=== PATIENT | female | born 1940 | race Caucasian/White ===

== ENCOUNTER 2019-10-07 09:13 | Outpatient (CLI) | payer MEDICARE, SELFPAY ==
--- NOTE | ~2019-10-07 | MR_ITS ---
EXAMINATION: MR brain/brain stem wo con EXAM DATE: 10/07/2019 10:07 INDICATION: Ataxia, history of transient ischemic attacks. TECHNIQUE: Magnetic resonance imaging (MRI) of the brain/brain stem obtained without contrast. Sagitt al T1, axial diffusion, gradient echo (T2*), T1, T2, FLAIR sequences obtained. Comparison is made to prior examination from 04/24/2012. FINDINGS: There are no areas of restricted diffusion to suggest acute infarction. There is no acute hemorrhage seen on the T2*, a hemosiderin sensitive sequence. No intraparenchymal brain mass lesion. There is mild periventricular and subcortical T2/FLAIR signal hyperintensity, nonspecific but probab ly related to small vessel ischemic disease (microangiopathy). There is mild prominence of the sulc i and ventricles related to cerebral atrophy. There are no extra-axial collections. Flow voids are seen in the cerebral arteries on the T2-weighted sequences consistent with their expected patency. Patient has had bilateral ocular lens surgery. Soft tissue is unremarkable. IMPRESSION: 1. No acute intracranial findings. 2. Chronic age related findings. Reviewed, dictated and finalized at location A.
== END 2019-10-07 09:14 | disposition home or self-care (01) ==
PROVIDERS: PCP Family Medicine; Visit Provider Family Medicine
DX: G54.9 Nerve root and plexus disorder, unspecified (principal)
CPT/HCPCS: 70551

== ENCOUNTER 2020-11-23 11:30 | Outpatient (CLI) | payer MEDICARE, SELFPAY ==
--- NOTE | ~2020-11-23 | XR_ITS ---
XR chest 2V 11/23/2020 11:53 Indication: Acute bronchitis Procedure: PA and lateral views of the chest Comparison: 01/26/2015 Findings: Heart size is normal. Left basilar atelectasis/scarring. There are scattered calcified gran ulomas. No acute focal pneumonia, edema or effusion. No pneumothorax. There are surgical clips in the right axilla. The lungs are hyperinflated which is consistent with, but not diagnostic of chronic ob structive pulmonary disease. Impression: 1: No acute cardiopulmonary disease. Reviewed, dictated and finalized at location B. Impression: 1: No acute cardiopulmonary disease.
== END 2020-11-23 11:31 | disposition home or self-care (01) ==
PROVIDERS: PCP Family Medicine; Visit Provider Family Medicine
DX: J20.9 Acute bronchitis, unspecified (principal)
CPT/HCPCS: 71046

== ENCOUNTER 2021-07-09 07:55 | Outpatient (CLI) | payer MEDICARE, SELFPAY ==
--- NOTE | ~2021-07-09 | MM_ITS ---
EXAMINATION: MM screening lui BI w jake HISTORY: Screening TECHNIQUE: Craniocaudal and mediolateral oblique 3-D tomosynthesis images were obtained and synthetic 2-D images were generated. CAD analysis was submitted and interpreted. COMPARISON: No prior mammogram is available for comparison at this institution. BREAST PARENCHYMAL COMPOSITION: There are scattered areas of fibroglandular density. FINDINGS: There are asymmetries centered in the upper outer quadrant of the left breast. There are no suspicious masses, calcifications or architectural distortion in the right breast to suggest maligna ncy. IMPRESSION: 1. Left breast asymmetries. 2. Additional mammographic views and possible breast ultrasound are recommended. BI-RADS Category 0: Incomplete: Needs additional imaging evaluation. Reviewed, dictated and finalized at location A. 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 Left breast asymmetries. 2. Additional mammographic views and possible breast ultrasound are recommended . BI-RADS Category 0: Incomplete: Needs additional imaging evaluation.
== END 2021-07-09 07:56 | disposition home or self-care (01) ==
LOC: ANHIMG 07:56
PROVIDERS: PCP Family Medicine; Visit Provider Family Medicine
DX: Z12.31 Encounter for screening mammogram for malignant neoplasm of breast (principal); R92.8 Other abnormal and inconclusive findings on diagnostic imaging of breast
CPT/HCPCS: 77063; 77067

== ENCOUNTER 2022-04-10 19:07 | Observation (INO) | payer MEDICARE, SELFPAY ==
[2022-04-10] VITALS (12 sets, daily range): BP systolic 136–147; BP diastolic 69–71; PULSE 75–100; RESP 16–27; TEMP 36.4–36.6; O2SAT 92–100
--- NOTE | ~2022-04-10 | XR_ITS ---
EXAMINATION: XR abdomen/kub 1V DATE: 04/12/2022 10:07 INDICATION: Lower abdominal pain TECHNIQUE: A supine view of the abdomen on 2 radiographs was obtained. COMPARISON: 04/11/2022 FINDINGS: Cholecystectomy clips in right upper quadrant. Couple additional surgical clips in the central pelvis and one in the left lower quadrant. Calcified splenic granuloma. Ossified phleboliths in the pelvis. Lung bases are clear. Moderate lower lumbar spondylosis. IMPRESSION: 1. No dilated bowel to suggest obstruction. Reviewed, dictated and finalized at location A.
--- NOTE | ~2022-04-10 | CT_ITS ---
EXAMINATION: CT abdomen pelvis w con DATE: 04/10/2022 21:27 INDICATION: LLQ AP TECHNIQUE: Computed tomography (CT) of the abdomen and pelvis was performed with 100 mL Omnipaque-350 intravenous contrast. Automated exposure control and iterative reconstruction technique were employe d. The dose-length product was 395.76 mGy-cm. COMPARISON: 08/15/2008. FINDINGS: Lower thorax: Senescent lung changes. Liver: Normal. Biliary/Gallbladder: Gallbladder is absent. Mild intra and extrahepatic biliary duct dilation, likely secondary to cholecystectomy. Pancreas: No mass or duct dilation. Spleen: Granulomatous calcifications. Adrenals:No mass. Kidneys: Multiple bilateral hypodensities, too small to characterize, but most likely represent cysts . GI tract: Distal esophageal and gastric wall edema. Multiple loops of dilated small bowel, most notab ly in the mid abdomen and right abdomen, no specific obstructing mass or transition point identified. No large bowel dilation. Diverticulosis without diverticulitis. Rectosigmoid anastomosis, without ev ident complication. Normal appendix. Mesentery/Peritoneum: No ascites, mass, or free air. Retroperitoneum: No mass. Atherosclerotic abdominal aortic and/or arterial calcifications. Pelvis: Fluid distended urinary bladder. Uterus not identified. Soft Tissues: Soft tissues and body wall unremarkable. Bones: No acute osseous finding. IMPRESSION: Multiple loops of dilated small bowel, without definite transition point, may represent obstruction o r ileus. Esophagitis/gastritis. Intra and extrahepatic biliary duct dilation, likely secondary to cho lecystectomy, unless accompanied by laboratory evidence of biliary obstruction. Reviewed, dictated and finalized at location K. IMPRESSION: Multiple loops of dilated small bowel, without definite transition point, may r epresent obstruction or ileus. Esophagitis/gastritis. Intra and extrahepatic bi liary duct dilation, likely secondary to cholecystectomy, unless accompanied by laboratory evidence of biliary obstruction.
--- NOTE | ~2022-04-10 | CT_ITS ---
EXAMINATION: CT brain wo con INDICATION: Dizziness COMPARISON: None TECHNIQUE: Standard unenhanced head CT. The dose-length product (DLP) was 681.00 mGy-cm. The mA was a djusted according to patient size. Iterative reconstruction technique was employed. FINDINGS: There is no acute intraparenchymal hemorrhage. No evidence of mass lesion. No evidence of a cute infarction. There is mild periventricular and subcortical hypodensity probably related to small vessel ischemic disease. There is mild prominence of the sulci and ventricles related to cerebral atr ophy. Intracranial calcified cerebral atherosclerosis is noted. There are no extra-axial collections. There is no mass effect or midline shift. Changes in the globes are likely from ocular lens surgery. The visualized sinuses and mastoid air cells are well aerated. IMPRESSION: 1. No acute intracranial abnormality. 2. Age related findings. Reviewed, dictated and finalized at location B.
--- NOTE | ~2022-04-10 | XR_ITS ---
EXAMINATION: XR abdomen/kub 1V DATE: 04/11/2022 10:15 INDICATION: Adynamic ileus. TECHNIQUE: A supine view of the abdomen was obtained. COMPARISON: CT abdomen and pelvis 04/10/2022 FINDINGS: There are no dilated loops of bowel. There are surgical clips in the abdomen. There is a sm all volume of stool in the colon. IMPRESSION: 1. Normal bowel gas pattern. Reviewed, dictated and finalized at location A.
--- NOTE | ~2022-04-10 | US_ITS ---
EXAMINATION: US carotid duplex BI DATE: 04/12/2022 15:49 INDICATION: Syncope. TECHNIQUE: Grayscale, color Doppler, and pulsed Doppler images of the cervical carotid arteries were obtained. The degree of vessel stenosis is placed in one of the following categories: normal, <50%, 5 0-69%, >=70% but less than near-occlusion, near-occlusion, or total occlusion. Note that percent sten osis relative to normal distal artery lumen diameter is indirectly measured from velocity measurement s as described by Roddy, et al. Radiology 2003; 229:340-346. COMPARISON: Ultrasound 04/24/2012 FINDINGS: RIGHT: The right common carotid artery (CCA) peak systolic velocity (PSV) is 98 cm/s. The right internal car otid artery (ICA) PSV is 85 cm/s. The right ICA end-diastolic velocity (EDV) is 15 cm/s. The right IC A/CCA PSV ratio is 0.9. Grayscale and color Doppler images yield an estimate of <50% diameter reducti on from plaque in the ICA. There is antegrade flow in the right vertebral artery. LEFT: The left CCA PSV is 101 cm/s. The left ICA PSV is 107 cm/s. The left ICA EDV is 20 cm/s. The left ICA /CCA PSV ratio is 1.1. Grayscale and color Doppler images yield an estimate of <50% diameter reductio n from plaque in the ICA. There is antegrade flow in the left vertebral artery. IMPRESSION: 1. <50% stenosis in the right internal carotid artery. 2. <50% stenosis in the left internal carotid artery. Reviewed, dictated and finalized at location A.
--- NOTE | 2022-04-10 20:07 | PC.NURSE ---
Pt difficult IV start, RNx3 attempt
--- NOTE | 2022-04-10 20:08 | ED.ABDPAIN ---
HPI - Abdominal Pain General Chief Complaint: Abdominal Pain Stated Complaint: abd pain x 4 hours History of Present Illness HPI narrative: Patient is an 81-year-old female who presents ER with left-sided abdominal pain. Began about 4 hours ago has increased in intensity. Sharp and in the left lower quadrant. No radiation. Associate with vomiting that comes in waves. No diarrhea. Has history of diverticulitis. Related Data Home Medications Medication Instructions Recorded Confirmed loratadine 10 mg tablet (Claritin) 10 mg PO DAILY PRN allergy symptoms 05/28/20 02/10/22 Allergies Allergy/AdvReac Type Severity Reaction Status Date / Time adhesive Allergy Mild Rash Verified 04/10/22 19:25 hydrocodone AdvReac Mild Nausea and Verified 04/10/22 19:25 Vomiting Review of Systems Review of Systems: All systems reviewed & are unremarkable except as noted in HPI and below Constitutional: Constitutional: Denies chills and Denies fever(s) Cardiovascular: Cardiovascular: Denies chest pain, Denies radiating jaw, neck or arm pain and Denies slow heart rate Respiratory: Respiratory: Denies cough and Denies dyspnea Gastrointestinal: Gastrointestinal: Reports abdominal pain, Denies diarrhea, Reports nausea and Reports vomiting Genitourinary: Genitourinary: Denies dysuria and Denies flank pain PMFSH Past Medical History Medical History (Updated 04/10/22 @ 22:08 by Callum Horowitz MD) Acute bronchitis Acute non-recurrent maxillary sinusitis Asymptomatic microscopic hematuria At high risk for falls Ataxia BMI 24.0-24.9, adult Breast cancer screening by mammogram COVID-19 (07/24/20) minimal symptoms with positive test on 08/01/2020. Does not want vaccine Elevated liver enzymes Fatigue Gait disturbance Intestinovaginal fistula Mixed hyperlipidemia Parkinsons Polycythemia UTI (urinary tract infection) Vertigo Surgical History Surgical History (Updated 04/10/22 @ 21:34 by Callum Horowitz MD) History of hysterectomy History of partial colectomy Family History Family History Mother Patient's mother is , Onset Age: 50 Family history of malignant neoplasm Social History Social History Years smoked: 55 Smoking status: Current every day smoker Tobacco type: cigarettes Alcohol intake: never Substance use: never Substance use type: does not use Exam Narrative: GENERAL: Uncomfortable appearing-appearing, well-nourished, actively retching. HEAD: Normocephalic, atraumatic. EYES: PERRL and EOMI. ENT: Mucous membranes moist. CHEST: Clear to auscultation. No respiratory distress. HEART: Regular rate and rhythm. Normal peripheral pulses. ABDOMEN: Soft, tender palpation left lower quadrant with guarding, nondistended. EXTREMITIES: Normal range of motion. No edema. SKIN: Warm, dry, no rash. NEURO: Alert and oriented x3. PSYCH: Normal mood and affect. Course Course Emergency Course: Patient and family informed of results. We will place an NG tube as I think gastric decompression will benefit this patient. Admitted to the hospitalist service for observation. Will start on maintenance fluids. Reevaluation(s) Reevaluation #1: Patient still in a lot of pain and rolling in her bed despite receiving morphine. We will give the patient a dose of Dilaudid. Patient's family at bedside and very distraught over there mother's illness. There is threatening to remove her from this hospital so she can get help some where else since they feel like we are only leaving her there in the bed to her and not take care of her. I have discussed with them that we are awaiting labs to return. We initially were evaluating to see if the morphine would help for pain which it did not so we will be reducing medication. And I have let them know that I plan on performing a CT scan but it cannot occur u
[2022-04-10] MEDS: MORPHINE SULFATE (*CRX) 4 MG/ML INJ IV PUSH (20:14)
[2022-04-10] MEDS: ONDANSETRON INJ 4 MG/2 ML VIAL IV PUSH (20:14)
[2022-04-10] MEDS: SODIUM CHLORIDE 0.9% IV 1,000 ML 999 ML IV CONT (20:17)
[2022-04-10 20:31] LABS: Basophils Absolute Auto 0.1 K/mm3 (0.0-0.1); Basophils Percent Auto 0.6 % (0.2-1.2); Eosinophils Absolute Auto 0.1 K/mm3 (0-0.3); Eosinophils Percent Auto 0.5 % (0-4.4); Hematocrit 47.2 % (37.0-47.0); Hemoglobin 16.7 g/dL (12.0-15.0); Immature Granulocyte Absolute 0.06 K/mm3 (0.00-0.031); Immature Granulocyte Percent A 0.4 % (0-0.5); Lymphocytes Absolute Auto 2.03 K/mm3 (0.9-3.2); Lymphocytes Percent Auto 12.9 % (18.3-44.2); Mean Corpuscular HGB Conc 35.4 g/dl (32-36); Mean Corpuscular Hemoglobin 33.1 pg (26-34); Mean Corpuscular Volume 93.7 fl (80-100); Mean Platelet Volume 9.6 fl (7.4-10.4); Monocytes Absolute Auto 1.1 K/mm3 (0.1-0.6); Neutrophils Absolute Auto 12.4 K/mm3 (1.3-6.7); Neutrophils Percent Auto 78.6 % (45.5-73.1); Platelet Count Result 227 k/mm3 (150-375); Red Blood Count 5.04 M/mm3 (4.2-5.4); Red Cell Distribution Width 12.4 % (11.5-14.5); White Blood Count 15.8 K/mm3 (4.5-10.0)
[2022-04-10] MEDS: HYDROmorphone HCL INJ (*CRX) 1 MG/ML SYR IV PUSH (20:41)
[2022-04-10 20:47] LABS: Alanine Aminotransferase 68 U/L (6-35); Albumin Level 4.6 g/dL (3.5-5.1); Alkaline Phosphatase 134 U/L (38-126); Anion Gap 11 mmol/L (8-16); Aspartate Amino Transferase 62 U/L (14-36); Bilirubin,Total 0.6 mg/dL (0.2-1.3); Blood Urea Nitrogen 14 mg/dL (7-17); Calcium 10.3 mg/dL (8.4-10.2); Carbon Dioxide 23 mmol/L (22-30); Chloride 105 mmol/L (98-107); Estimated CRCL calculation 38 ml/min; Estimated Glomerular Filt Rate 60; Glucose 125 mg/dL (65-110); Lipase 148 U/L (23-300); Potassium 3.7 mmol/L (3.4-5.0); Sodium 139 mmol/L (137-145)
[2022-04-10] MEDS: PROMETHAZINE HCL 25 MG/ML AMPUL 12.5 MG IV PUSH (21:32)
--- NOTE | 2022-04-10 22:11 | PM.IMHP ---
H&P: HPI History of Present Illness Date/Time: 04/10/22 22:11 Chief Complaint: abdominal pain Narrative: This is an 81-year-old female with past medical history significant for seasonal allergies. patient presents to the emergency room due to abdominal pain localized to the epigastric area burning pain which later on became diffuse, nausea, vomiting, patient rating her pain a 10/10 in intensity. Patient has been in her usual state of health up until this moment she was able to have a meal in the morning. Patient denies any weight loss, changes in stool character, melena, bright red blood per rectum, hematemesis, dyspepsia, heartburn, denies any fevers, rigors, chills, cough, sputum production. PRELIMINARY WORKUP WAS SIGNIFICANT FOR CT of abdomen and pelvis was reported as: IMPRESSION: Multiple loops of dilated small bowel, without definite transition point, may represent obstruction or ileus. Esophagitis/gastritis. Intra and extrahepatic biliary duct dilation, likely secondary to cholecystectomy, unless accompanied by laboratory evidence of biliary obstruction. CBC hemoglobin of 16, hematocrit 47 comprehensive metabolic panel ALT 60 AST 62 alk phos 134 patient has been admitted for further evaluation management and treatment. Review of Systems Review of Systems: Abdominal pain, nausea, vomiting x1 day duration Constitutional: Constitutional: Denies chills, Denies fever(s) and Denies night sweats Eyes: Eyes: Denies change in vision ENT: Denies dysphagia and Denies odynophagia Cardiovascular: Cardiovascular: Denies chest pain, Denies irregular heart rhythm, Denies lightheadedness and Denies palpitations Respiratory: Respiratory: Denies change in phlegm color, Denies chest congestion, Denies cough, Denies excessive phlegm production, Denies pain on inspiration, Denies dyspnea and Denies dyspnea on exertion Gastrointestinal: Gastrointestinal: Reports abdominal pain, Reports bloating, Reports excessive flatus, Denies dyspepsia, Denies heartburn, Reports diarrhea, Reports nausea and Reports vomiting Genitourinary: Genitourinary: Denies dysuria Musculoskeletal: Musculoskeletal: Denies back pain, Denies myalgias, Denies joint swelling and Denies muscle weakness Integumentary/Breasts: Skin/Breast: Denies rash Neurologic: Denies vertigo, Denies dizziness, Denies focal weakness and Denies Sensory deficit (Neuro) Psychiatric: Psychiatric: Reports no additional psychiatric complaints and Reports as per HPI Endocrine: Endocrine: Denies cold intolerance, Denies fatigue, Denies flushing, Denies heat intolerance, Denies polyphagia, Denies polydipsia and Denies palpitations Hematologic/Lymphatic: Hematologic/Lymphatic: Reports no additional hematologic/lymphatic complaints and Reports as per HPI Allergic/Immunologic: Allergic/Immunologic: Reports no additional allergic/immunologic complaints and Reports as per HPI PMFSH Past Medical History Medical History (Updated 04/10/22 @ 22:08 by Callum Horowitz MD) Acute bronchitis Acute non-recurrent maxillary sinusitis Asymptomatic microscopic hematuria At high risk for falls Ataxia BMI 24.0-24.9, adult Breast cancer screening by mammogram COVID-19 (07/24/20) minimal symptoms with positive test on 08/01/2020. Does not want vaccine Elevated liver enzymes Fatigue Gait disturbance Intestinovaginal fistula Mixed hyperlipidemia Parkinsons Polycythemia UTI (urinary tract infection) Vertigo Surgical History Surgical History (Updated 04/10/22 @ 21:34 by Callum Horowitz MD) History of hysterectomy History of partial colectomy Family History Family History Mother Patient's mother is , Onset Age: 50 Family history of malignant neoplasm Social History Social History Years smoked: 64 Smoking status: Current every day smoker Tobacco type: cigarettes
[2022-04-10] MEDS: PANTOPRAZOLE SODIUM IV 40 MG VIAL IV PUSH (22:18)
--- NOTE | 2022-04-10 22:58 | PC.NURSE ---
NG procedure explained to patient, pt's daughter states she will not do NG tube because she will not be able to watch her overnight. Pt oriented and able to answer questions, understands procedure and verbalized understanding of procedure. Daughter states she will stay in parking lot since visiting hours and pt states she will leave then. Benefits and risks of NG tube reiterated with pt and family and time given to family to make decision.
[2022-04-10 23:05] LABS: SARS-CoV-2 RNA PCR Negative
--- NOTE | 2022-04-10 23:23 | PC.NURSE ---
Attempted NG tube placement x3, pt refused and pulled tube out. Pt aware of benefits and risks of procedure and pt refused.
--- NOTE | 2022-04-10 23:25 | ADMGEN ---
This patient, Zena Robins, was admitted to [facility] Surg Room 322-02. Patient/family oriented to hospital policies and general routines including ID bracelet, bed and alarms, visiting hours, pain management, procedures, bathroom and other care routines, personal items, smoking policy, room service/diet, and visiting hours. Information on how to activate the Rapid Response Team has been discussed. Patient/Family are encouraged to report perceived risks to care and to ask questions if they do not understand what they are told or what they should do.
[2022-04-11] VITALS: BP 121/69; PULSE 77; RESP 16; TEMP 36.1; O2SAT 98; BMI 25.7
[2022-04-11] MEDS: SODIUM CHLORIDE 0.9% IV 1,000 ML 125 ML IV CONT ×3 (01:29→19:00)
--- NOTE | 2022-04-11 03:54 | PC.NURSE ---
Pt arrived to the floor just before midnight. NG tube placement has been ordered for pt. Several attempts have been made to insert NG tube. Pt continues to refuse. Pt has family that is sleeping in the car. Pt has been sleeping since arriving to the floor. Will continue to monitor pt.
[2022-04-11 06:00] VITALS: BP 108/60; PULSE 71; RESP 14; TEMP 36.8; O2SAT 99
[2022-04-11] MEDS: PANTOPRAZOLE SODIUM IV 40 MG VIAL IV PUSH ×2 (08:49→17:16)
--- NOTE | 2022-04-11 10:06 | PM.CNGS ---
Assessment and Plan Assessment and plan (1) Ileus: Code(s): K56.7 - Ileus, unspecified Status: Acute Assessment and Plan: I reviewed the CT and discussed the findings with the patient. Would like to get a follow-up abdominal x-ray this morning to assess for resolution of dilated bowel. Patient does not present like a typical small-bowel obstruction but this is possible given her surgical history and CT findings. This may be gastroenteritis related to something that she ate and the ileus appearance on the CT could be related to the significant amount of vomiting patient was experiencing right before presenting to the emergency department. Patient has already been started on PPI and broad-spectrum IV antibiotics. If follow-up x-ray shows persistent dilated bowel, then I will obtain a small-bowel follow-through today. Discussed the importance of NG tube placement if she does have a persistent obstruction as this could potentially treat the bowel obstruction without requiring surgery. If x-ray shows improvement then she can start a clear liquid diet and will follow along for resolution of symptoms. (2) Acute abdominal pain: Code(s): R10.9 - Unspecified abdominal pain Status: Acute (3) Gastritis: Code(s): K29.70 - Gastritis, unspecified, without bleeding Status: Acute Plan Thank you much for allowing us to aid in the care of this patient. History of Present Illness Consult details Consult date: 04/11/22 Reason for consult: other (Bowel obstruction) Requesting physician: Ricardo Gonzalez MD Narrative: This is an 81-year-old woman who I am asked to see for a possible small-bowel obstruction. She presented to the emergency department last night with acute onset of upper abdominal pain that started around 1:00 p.m. yesterday afternoon. She had eaten some carrots and chicken prior to this. Pain was abrupt and felt like sharp stabbing pains. She was also having some left lower quadrant pain. Several hours after the pain began, she started having nausea and vomiting. She denies feeling bloated prior to this. She had a bowel movement yesterday morning and is still passing flatus. She has never experienced anything like this before. After the CT results came back in the emergency department last night, NG tube placement was attempted but patient had severe discomfort with attempted placements and then refused further attempts. Since being in the emergency department, her symptoms have nearly completely resolved. She no longer has any nausea or vomiting. She is passing flatus. She does not have any pain but does have some tenderness with palpation. Review of Systems Review of Systems: All systems reviewed & are unremarkable except as noted in HPI and below Eyes: Eyes: Denies change in vision ENT: Denies hearing loss, Denies neck pain and Denies sore throat Cardiovascular: Cardiovascular: Denies chest pain and Denies dyspnea Respiratory: Respiratory: Denies cough, Denies dyspnea and Denies wheezing Genitourinary: Genitourinary: Denies hematuria and Denies dysuria Musculoskeletal: Musculoskeletal: Denies arthralgias, Denies joint swelling and Denies neck pain Allergic/Immunologic: Allergic/Immunologic: Denies wheezing [facility] Past Medical History Medical History (Updated 04/11/22 @ 10:17 by Kit De La Torre DO) Acute bronchitis Acute non-recurrent maxillary sinusitis Asymptomatic microscopic hematuria At high risk for falls Ataxia BMI 24.0-24.9, adult Breast cancer screening by mammogram COVID-19 (07/24/20) minimal symptoms with positive test on 08/01/2020. Does not want vaccine Elevated liver enzymes Fatigue Gait disturbance Intestinovaginal fistula Mixed hyperlipidemia Parkinsons Polycythemia UTI (urinary tract infection) Vertigo Surgical History Surgical History (Updated 04/11/22 @ 10:15 by Kit De La Torre DO) History of cholecystectomy History of hysterectomy
--- NOTE | 2022-04-11 10:15 | PM.IMPN ---
Progress Note: A&P Assessment and Plan (1) Ileus: Code(s): K56.7 - Ileus, unspecified Status: Acute Assessment and Plan: Diet advanced to clear liquid Repeat KUB indicates normal bowel gas pattern general surgery consulted No pain currently Tolerating diet supportive care IV fluids replace electrolytes as needed (2) Elevated liver enzymes: Code(s): R74.8 - Abnormal levels of other serum enzymes Status: Acute Assessment and Plan: continue to trend Hep panel in the am (3) Polycythemia: Code(s): D75.1 - Secondary polycythemia Status: Acute Assessment and Plan: H/H 16.7/47.2, MCV 93.7 Seems stable follow-up in outpatient setting (4) Parkinsons: Code(s): G20 - Parkinson's disease Status: Acute Assessment and Plan: patient appears not to be on medication (5) GERD (gastroesophageal reflux disease): Code(s): K21.9 - Gastro-esophageal reflux disease without esophagitis Status: Acute Assessment and Plan: continue PPI (6) Tobacco use disorder, continuous: Code(s): F17.209 - Nicotine dependence, unspecified, with unspecified nicotine-induced disorders Status: Acute Assessment and Plan: nicotine patch as needed (7) Gastritis: Code(s): K29.70 - Gastritis, unspecified, without bleeding Status: Acute Assessment and Plan: Abd CT showed gastritis Zosyn started WBC is elevated at 15.8 Trend labs Time Spent With Patient Time with patient: Greater than 35 minutes Subjective Date/time seen: 04/11/22 10:15 Interval history: 04/11/22 1015 Patient stated that she was not having any abdominal pain. She denies any nausea, vomiting, chest pain, shortness of breath. Patient stated that she was unable to get the NG tube down she has could do it. She was able to tolerate some ice chips, and stated that she was starving. 04/10/22? 22:11 ?This is an 81-year-old female with past medical history significant for seasonal allergies. patient presents to the emergency room due to abdominal pain localized to the epigastric area burning pain which later on became diffuse, nausea, vomiting, patient rating her pain a 10/10 in intensity.? Patient has been in her usual state of health up until this moment she was able to have a meal in the morning.? Patient denies any weight loss, changes in? stool character, melena, bright red blood per rectum, hematemesis,? dyspepsia, heartburn, denies any fevers, rigors, chills, cough, sputum production. PRELIMINARY WORKUP WAS SIGNIFICANT FOR CT of abdomen and pelvis was reported as: IMPRESSION: Multiple loops of dilated small bowel, without definite transition point, may represent obstruction or ileus. Esophagitis/gastritis. Intra and extrahepatic biliary duct dilation, likely secondary to cholecystectomy, unless accompanied by laboratory evidence of biliary obstruction. ?CBC hemoglobin of 16, hematocrit 47 ?comprehensive metabolic panel ALT 60 AST 62 alk phos 134 ?patient has been admitted for further evaluation management and treatment. Review of Systems Review of Systems: All systems reviewed & are unremarkable except as noted in HPI and below Exam Const: General: comfortable, no acute distress, well developed, alert and awake Nutritional Appearance: average body habitus Orientation/consciousness: patient oriented x3 HENMT: Head: normal to inspection, normocephalic and atraumatic Ears: hearing grossly normal bilaterally Face and sinus: normal facial exam Eyes: General: appearance normal, both eyes and all related structures Pupils: Equal, round and reactive pupils present EOM: EOMs intact bilaterally Neck: Neck: full ROM, no lymphadenopathy and no JVD Thyroid: thyroid normal Lymphatic: no lymphadenopathy noted Resp: Effort & Inspection: normal respiratory effort a
[2022-04-11] MEDS: polyethylene glycoL 3350 17 GM POWD.PACK PO (11:21)
[2022-04-11 14:00] VITALS: BP 120/57; PULSE 69; RESP 22; TEMP 36.2; O2SAT 99
[2022-04-11 15:35] VITALS: BP 123/69; PULSE 63; RESP 18; TEMP 36; O2SAT 100
[2022-04-11 15:57] VITALS: BP 111/56; BP 123/63; PULSE 61; PULSE 68; RESP 18; RESP 20; TEMP 36; O2SAT 100; O2SAT 99
[2022-04-11 18:32] LABS: Appearance Urine Clear (Clear); Bilirubin Urine Negative (Negative); Blood Urine Negative (Negative); Color Urine Yellow (Yellow); Glucose Urine UA Negative (Negative); Ketones Urine Negative (Negative); Leukocyte Esterase Ur Negative LEU/UL (NEGATIVE); Nitrate Urine Negative (Negative); Protein Urine Negative (Negative); Urobilinogen Urine 0.2 mg/dL (<2.0)
[2022-04-11 18:37] LABS: Mucus Urine Rare /lpf; WBC Urine 0-3 /hpf (0-3)
[2022-04-11 18:40] LABS: Add Urine Microscopic? YES
[2022-04-11 22:00] VITALS: BP 97/80; PULSE 56; RESP 16; TEMP 36.1; O2SAT 100
[2022-04-12] VITALS (8 sets, daily range): BP systolic 129–155; BP diastolic 60–79; PULSE 61–75; RESP 16–18; TEMP 35.9–36.3; O2SAT 97–100
--- NOTE | 2022-04-12 | ECHO_ITS ---
Patient Info Name: Zena Robins Age: 81 years : 1940 Gender: Female Ht: 64 in Wt: 149 lbs BSA: 1.76 m2 HR: 91 bpm BP: 129 / 60 mmHg Technical Quality: Fair Exam Date: 04/12/2022 2:39 PM Exam Location: [facility] Patient Status: Outpatient Admit Date: 04/10/2022 Staff Ordering Physician: Dario Lorenzo Agile Project Manager: Quita Rick RDCS Attending Provider: Ricardo Gonzalez MD Referring Physician: Bj AARON; Exam Type: CA echo doppler color flow Study Info Indications R55 - Syncope and collapse Complete two-dimensional, color flow and Doppler transthoracic echocardiogram is performed. Summary 1. Complete two-dimensional, color flow and Doppler transthoracic echocardiogram is performed. 2. Left ventricular chamber dimension is normal. 3. Left ventricular systolic function is normal, estimated at 65-70%. 4. There is mildly increased left ventricular wall thickness. 5. The left ventricular diastolic function is normal. 6. E/e' 7 is not elevated. 7. No pulmonary hypertension, estimated pulmonary arterial systolic pressure is 21 mmHg. Left Ventricle E/e' 7 is not elevated. Left ventricular chamber dimension is normal. Left ventricular systolic function is normal, estimated at 65-70%. There is mildly increased left ventricular wall thickness. The left ventricular diastolic function is normal. Right Ventricle Right ventricular systolic function is normal and with normal TAPSE 2.0 cm. Right ventricular chamber dimension is normal. Left Atria Left atrial chamber dimension is normal. Right Atria Right atrial chamber dimension is normal. Aortic Valve The aortic valve is trileaflet. There is no aortic valve stenosis. There is no aortic valve regurgitation. Pulmonic Valve There is no pulmonic regurgitation. Mitral Valve There is no mitral valve stenosis. There is no mitral valve regurgitation. Tricuspid Valve There is no tricuspid valve regurgitation. No pulmonary hypertension, estimated pulmonary arterial systolic pressure is 21 mmHg. Pericardium/Pleural There is no pericardial effusion. Inferior Vena Cava Normal inferior vena cava with >50% collapse upon inspiration consistent with normal right atrial pressure, 5 mmHg. Aorta The aortic root size at the sinus of Valsalva is normal. Left Ventricular Outflow Tract Name Value Normal LVOT 2D LVOT Diameter 1.9 cm LVOT Doppler LVOT Peak Gradient 3 mmHg LVOT Mean Gradient 2 mmHg LVOT VTI 22 cm LVOT VTI/AV VTI Ratio 0.9 LVOT Stroke Volume 64 ml LVOT CO 4.6 l/min LVOT CI 2.6 l/min/m2 Pulmonic Valve Name Value Normal RVOT Doppler RVOT Pea
[2022-04-12] MEDS: SODIUM CHLORIDE 0.9% IV 1,000 ML 125 ML IV CONT (05:26)
[2022-04-12 06:56] LABS: Basophils Absolute Auto 0.1 K/mm3 (0.0-0.1); Eosinophils Absolute Auto 0.3 K/mm3 (0-0.3); Hematocrit 40.8 % (37.0-47.0); Hemoglobin 13.5 g/dL (12.0-15.0); Immature Granulocyte Absolute 0.02 K/mm3 (0.00-0.031); Immature Granulocyte Percent A 0.4 % (0-0.5); Lymphocytes Absolute Auto 1.32 K/mm3 (0.9-3.2); Lymphocytes Percent Auto 25.5 % (18.3-44.2); Mean Corpuscular HGB Conc 33.1 g/dl (32-36); Mean Corpuscular Volume 99.8 fl (80-100); Mean Platelet Volume 9.7 fl (7.4-10.4); Monocytes Absolute Auto 0.5 K/mm3 (0.1-0.6); Monocytes Percent Auto 10.1 % (2.6-8.5); Platelet Count Result 136 k/mm3 (150-375); Red Blood Count 4.09 M/mm3 (4.2-5.4); Red Cell Distribution Width 12.7 % (11.5-14.5); White Blood Count 5.2 K/mm3 (4.5-10.0)
[2022-04-12 07:07] LABS: Alanine Aminotransferase 61 U/L (6-35); Alkaline Phosphatase 78 U/L (38-126); Anion Gap 8 mmol/L (8-16); Aspartate Amino Transferase 61 U/L (14-36); Bilirubin,Total 0.6 mg/dL (0.2-1.3); Blood Urea Nitrogen 6 mg/dL (7-17); Calcium 7.7 mg/dL (8.4-10.2); Carbon Dioxide 22 mmol/L (22-30); Chloride 110 mmol/L (98-107); Estimated CRCL calculation 34 ml/min; Estimated Glomerular Filt Rate 53; Glucose 93 mg/dL (65-110); Potassium 3.9 mmol/L (3.4-5.0); Sodium 140 mmol/L (137-145)
[2022-04-12] MEDS: PANTOPRAZOLE SODIUM IV 40 MG VIAL IV PUSH ×2 (08:17→17:21)
[2022-04-12] MEDS: ACETAMINOPHEN 500 MG TABLET 1000 MG PO (08:17)
--- NOTE | 2022-04-12 09:30 | PM.IMPN ---
Progress Note: A&P Assessment and Plan (1) Ileus: Code(s): K56.7 - Ileus, unspecified Status: Acute Assessment and Plan: Diet advanced to clear liquid Repeat KUB from 04/12/22 does not indicate an obstruction or ileus general surgery consulted No pain currently Tolerating diet supportive care IV fluids replace electrolytes as needed Start senna and miralax Wonder if the pain is from the gastritis (2) Elevated liver enzymes: Code(s): R74.8 - Abnormal levels of other serum enzymes Status: Acute Assessment and Plan: continue to trend Hep panel in the am (3) Polycythemia: Code(s): D75.1 - Secondary polycythemia Status: Acute Assessment and Plan: H/H 13.5/40.8 MCV 99.8 Seems stable follow-up in outpatient setting (4) Parkinsons: Code(s): G20 - Parkinson's disease Status: Acute Assessment and Plan: patient appears not to be on medication (5) GERD (gastroesophageal reflux disease): Code(s): K21.9 - Gastro-esophageal reflux disease without esophagitis Status: Acute Assessment and Plan: continue PPI (6) Tobacco use disorder, continuous: Code(s): F17.209 - Nicotine dependence, unspecified, with unspecified nicotine-induced disorders Status: Acute Assessment and Plan: nicotine patch as needed (7) Gastritis: Code(s): K29.70 - Gastritis, unspecified, without bleeding Status: Acute Assessment and Plan: Abd CT showed gastritis Zosyn started WBC trending down and currently 5.2 Trend labs (8) Syncope: Code(s): R55 - Syncope and collapse Status: Acute Assessment and Plan: One episode noted yesterday Head ct negative Carotid doppler ordered orthostatic blood pressures Echo ordered Ekg ordered Fall precautions Plan Patient supposedly had a syncopal episode however, the patient denies it. It was also stated that this happens at home too Time Spent With Patient Time with patient: Greater than 35 minutes Subjective Date/time seen: 04/12/22929 Interval history: 04/12/22929 Patient is doing ok. She denies any chest pain, shortness of breath, nausea, vomiting, diarrhea, constipation. She is complaining of abdominal pain with palpation. She stated that he pain is more in the middle, and she rates it about a 6/10. She denies having the syncopal episode yesterday. She stated that she was just bending down to throw something away, however, it sounds that she does not remember the full story. Head CT was negative. Repeat KUB was ordered. 04/11/22 1015 Patient stated that she was not having any abdominal pain. She denies any nausea, vomiting, chest pain, shortness of breath. Patient stated that she was unable to get the NG tube down she has could do it. She was able to tolerate some ice chips, and stated that she was starving. 04/10/22? 22:11 ?This is an 81-year-old female with past medical history significant for seasonal allergies. patient presents to the emergency room due to abdominal pain localized to the epigastric area burning pain which later on became diffuse, nausea, vomiting, patient rating her pain a 10/10 in intensity.? Patient has been in her usual state of health up until this moment she was able to have a meal in the morning.? Patient denies any weight loss, changes in? stool character, melena, bright red blood per rectum, hematemesis,? dyspepsia, heartburn, denies any fevers, rigors, chills, cough, sputum production. PRELIMINARY WORKUP WAS SIGNIFICANT FOR CT of abdomen and pelvis was reported as: IMPRESSION: Multiple loops of dilated small bowel, without definite transition point, may represent obstruction or ileus. Esophagitis/gastritis. Intra and extrahepatic biliary duct dilation, likely secondary to cholecystectomy, unless accompan
--- NOTE | 2022-04-12 12:32 | PM.PNGS ---
Progress Note: A&P Assessment and Plan (1) Acute abdominal pain: Code(s): R10.9 - Unspecified abdominal pain Status: Acute Assessment and Plan: tolerting clears. no sign of obstruction. Advance diet as tolerated. Will see as needed. OK to discharge from surgical standpoint if tolerating regular diet. (2) Ileus: Code(s): K56.7 - Ileus, unspecified Status: Acute (3) Gastritis: Code(s): K29.70 - Gastritis, unspecified, without bleeding Status: Acute Subjective Subjective Date/Time Seen: 04/12/22 12:32 Interval history: Tolerating clears. Moving bowels. No nausea or vomiting. Having some lower abdominal wall pain. Exam GI: Inspection: non-distended GI Palp: Yes Soft to palpation and Yes Tenderness to palpation present (GI) (suprapubic and LLQ--mostly abdominal wall) Auscultation: normal bowel sounds Objective Data Vital Signs Vital Signs: Vital Signs - 24 hr 04/11/22 14:00 04/11/22 15:35 04/11/22 15:57 Temperature 36.2 C L 36.0 C L 36.0 C L Pulse Rate 69 63 68 Respiratory Rate 22 H 18 20 Blood Pressure 120/57 L 123/69 123/63 Pulse Oximetry 99 100 100 Oxygen Delivery 04/11/22 15:57 04/11/22 20:00 04/11/22 22:00 Temperature 36.0 C L 36.1 C L Pulse Rate 61 56 L Respiratory Rate 18 16 Blood Pressure 111/56 L 97/80 L Pulse Oximetry 99 100 Oxygen Delivery Room Air 04/12/22 06:00 04/12/22 08:17 Temperature 36.3 C L Pulse Rate 75 Respiratory Rate 16 Blood Pressure 129/60 Pulse Oximetry 97 Oxygen Delivery Room Air Intake/Output Intake/Output: Intake & Output 04/09/22 04/10/22 04/11/22 04/12/22 23:59 23:59 23:59 23:59 Intake Total 1000 3410 1650 Output Total 1900 500 Balance 1000 1510 1150 Meds/Results Medications: Active Medications Generic Name Dose Route Start Last Admin Trade Name Freq PRN Reason Stop Dose Admin Acetaminophen 1,000 mg 04/12/22 07:59 04/12/22 08:17 Acetaminophen 500 Mg Tablet PO 1,000 mg Q6H PRN Administration Mild Pain (1-3) or Fever Sodium Chloride 1,000 mls @ 125 mls/hr 04/10/22 22:10 04/12/22 05:26 Normal Saline Iv IV CONT 125 mls/hr .Q8H ROBSON Administration Piperacillin Sod/Tazobactam Sod 2.25 gm in 50 mls @ 100 mls/hr 04/11/22 09:00 04/12/22 12:24 Zosyn 2.25 Gm/D5w 50 Ml IVPB 100 mls/hr Q6HR ROBSON Administration Morphine Sulfate 4 mg 04/10/22 22:10 Morphine Sulfate (*Crx) 4 Mg/Ml Inj IV PUSH Q2H PRN Pain Rated 7-10 Ondansetron HCl 4 mg 04/10/22 22:10 Ondansetron Inj 4 Mg/2 Ml Vial IV PUSH Q4H PRN Nausea Pantoprazole Sodium 40 mg 04/11/22 09:00 04/12/22 08:17 Pantoprazole Sodium Iv 40 Mg Vial IV PUSH 40 mg BID ROBSON Administration Radiology Results: ITS Impressions Abdomen/Pelvis CT 04/10/22 21:37 IMPRESSION: Multiple loops of dilated small bowel, without definite transition point, may represent obstruction or ileus. Esophagitis/gastritis. Intra and extrahepatic biliary duct dilation, likely secondary to cholecystectomy, unless accompanied by laboratory evidence of biliary obstruction. Head CT 04/11/22 16:39 IMPRESSION: 1. No acute intracranial abnormality. 2. Age related findings. Abdomen X-Ray 04/12/22 10:17 IMPRESSION: 1. No dilated bowel to suggest obstruction. Labs Labs: Laboratory Results - last 24 hr 04/11/22 04/12/22 04/12/22 18:24 06:44 06:44 WBC 5.2 RBC 4.09 L Hgb 13.5 D Hct 40.8 MCV 99.8 D MCH 33.0 MCHC 33.1 RDW 12.7 Plt Count 136 L MPV 9.7 Immature Gran % (Auto) 0.4 Neut % (Auto) 58.0 Lymph % (Auto) 25.5 Davison % (Auto) 10.1 H Eos % (Auto) 5.0 H Baso % (Auto) 1.0 Lymph # (Auto) 1.32 Davison # (Auto) 0.5 Eos # (Auto) 0.3 Baso # (Auto) 0.1 Abs Immat Gran (auto) 0.02 Absolute Neuts (auto) 3.0 Absolute Nucleated RBC 0.0 Nucleated RBC % 0.0 Sodium 140 Potassium 3.9
--- NOTE | 2022-04-12 13:04 | ECG_ITS ---
Measurements Intervals [place] Rate: 77 P: 62 NE: 148 QRS: 13 QRSD: 81 T: 29 QT: 402 QTc: 456 Interpretive Statements SINUS RHYTHM NORMAL ECG NO PREVIOUS ECG AVAILABLE FOR COMPARISON Electronically Signed On 04-12-2022 15:34:31 CDT by Chandana Terrazas D.O.
[2022-04-13 05:55] VITALS: BP 126/67; PULSE 67; RESP 18; TEMP 35.9; O2SAT 97
[2022-04-13 06:48] LABS: Basophils Absolute Auto 0.1 K/mm3 (0.0-0.1); Basophils Percent Auto 0.9 % (0.2-1.2); Eosinophils Absolute Auto 0.2 K/mm3 (0-0.3); Eosinophils Percent Auto 3.6 % (0-4.4); Hematocrit 40.8 % (37.0-47.0); Hemoglobin 14.1 g/dL (12.0-15.0); Immature Granulocyte Absolute 0.03 K/mm3 (0.00-0.031); Immature Granulocyte Percent A 0.5 % (0-0.5); Lymphocytes Absolute Auto 1.89 K/mm3 (0.9-3.2); Lymphocytes Percent Auto 29.3 % (18.3-44.2); Mean Corpuscular HGB Conc 34.6 g/dl (32-36); Mean Corpuscular Hemoglobin 33.3 pg (26-34); Mean Corpuscular Volume 96.5 fl (80-100); Mean Platelet Volume 9.9 fl (7.4-10.4); Monocytes Absolute Auto 0.6 K/mm3 (0.1-0.6); Monocytes Percent Auto 9.3 % (2.6-8.5); Neutrophils Absolute Auto 3.7 K/mm3 (1.3-6.7); Neutrophils Percent Auto 56.4 % (45.5-73.1); Platelet Count Result 143 k/mm3 (150-375); Red Blood Count 4.23 M/mm3 (4.2-5.4); Red Cell Distribution Width 12.5 % (11.5-14.5); White Blood Count 6.5 K/mm3 (4.5-10.0)
[2022-04-13 07:08] LABS: Alanine Aminotransferase 60 U/L (6-35); Albumin Level 3.3 g/dL (3.5-5.1); Alkaline Phosphatase 87 U/L (38-126); Anion Gap 9 mmol/L (8-16); Aspartate Amino Transferase 58 U/L (14-36); Bilirubin,Total 0.4 mg/dL (0.2-1.3); Blood Urea Nitrogen 9 mg/dL (7-17); Calcium 8.2 mg/dL (8.4-10.2); Carbon Dioxide 22 mmol/L (22-30); Chloride 109 mmol/L (98-107); Estimated CRCL calculation 38 ml/min; Estimated Glomerular Filt Rate 60; Glucose 92 mg/dL (65-110); Potassium 3.5 mmol/L (3.4-5.0); Sodium 140 mmol/L (137-145)
[2022-04-13] MEDS: PANTOPRAZOLE SODIUM IV 40 MG VIAL IV PUSH (09:05)
[2022-04-13 11:05] LABS: Hepatitis B Surface Antigen Negative (Negative)
[2022-04-13 11:06] VITALS: BP 136/86; BP 145/69
[2022-04-13 11:07] VITALS: BP 140/72
[2022-04-13 11:11] LABS: HAV RESULT Negative (Negative); Hepatitis B Core IgM Result Negative (Negative)
[2022-04-13 11:23] LABS: Hepatitis C Virus Antibody Negative (Negative)
--- NOTE | 2022-04-13 12:42 | PM.DS ---
DS: Admitting Diagnosis Discharge Date 04/13/2022 Admitting Diagnosis Ileus DS: Discharge Diagnosis Discharge Diagnosis (1) Ileus: Code(s): K56.7 - Ileus, unspecified Status: Acute Assessment and Plan: Patient presented with complaints of abdominal pain in the left lower quadrant. CT of abdomen / pelvis on presentation showed multiple loops of dilated small bowel without definite transition point, may represent obstruction or ileus she was seen in consultation by General surgery resolved with conservative management able to advance to a bland diet repeat KUB showed no evidence of obstruction, no dilated bowel started on bowel regimen of MiraLax and Colace (2) Elevated liver enzymes: Code(s): R74.8 - Abnormal levels of other serum enzymes Status: Acute Assessment and Plan: patient mild elevation of LFTs hepatitis panel negative monitor outpatient (3) Gastritis: Code(s): K29.70 - Gastritis, unspecified, without bleeding Status: Acute Assessment and Plan: Abd CT showed gastritis Will begin taking protonix 40 mg daily (4) Tobacco use disorder, continuous: Code(s): F17.209 - Nicotine dependence, unspecified, with unspecified nicotine-induced disorders Status: Acute Assessment and Plan: Patient every day smoker Education provided, no intentions to quit smoking (5) Syncope: Code(s): R55 - Syncope and collapse Status: Acute Assessment and Plan: Patient had reported episode of syncope during admission. Patient denies syncope. States she bent down to grab something and staff thought she passed out but she simply bent down. Reports history of syncope several months prior while doing water aerobics after not eating or drinking anything at all that day. Head CT negative. Carotid doppler negative. Echo with normal EF, normal diastolic function, no significant valvular abnormalities Orthostatics negative Fall precautions discussed DS: Summary Hospital Course Hospital Course: date of admission: 04/10/2022 date of discharge: 04/13/2022 Zena Robins is an 81-year-old female with a history of hyperlipidemia, Parkinson's, polycythemia who presented to the emergency department on 04/10/2022 with complaints of left-sided abdominal pain. In the ED, vital signs stable, patient afebrile, WBC 15.8, H&H mildly elevated, LFTs mildly elevated, CT of the abdomen/ pelvis showed obstruction vs ileus. She was admitted to the hospitalist service for further evaluation management was seen in consultation by General surgery. Please see above for further details. Patient had symptomatic improvement following conservative management. She was feeling back to her usual state of health. She was able to tolerate her diet. She was very eager for discharge home. Given overall improvement, she was determined to no longer require inpatient care was discharged in hemodynamically stable condition on 04/13/2022. Discussed with the patient worrisome signs and symptoms for which to return and she was educated on her medications. Time Spent with Patient Time attestation: Total time spent providing and/or coordinating discharge services: 45 minutes Exam Narrative: General: Well-nourished, well-appearing 81-year-old female, sitting up in bed, comfortable, NARD Neuro: awake, alert and oriented x4, speech clear, no focal neuro deficits noted HEENMT: normocephalic, atraumatic, EOMI, sclerae anicteric Respiratory: clear to auscultation bilaterally, nonlabored breathing Cardio: regular rate, regular rhythm with S1-S2 Abdomen: nondistended, normoactive bowel sounds, soft, nontender to palpation Extremities: no edema, erythema, or tenderness to palpation, DP pulses 2+ bilaterally Skin: no rashes or lesions, warm and dry Psych: appropriate mood and affect, judgment and insight intact DS: Data Data Completed and Pe
== END 2022-04-13 13:15 | disposition home or self-care (01) ==
LOC: ANHED 22:08 → ANH3MEDSUR 23:17
PROVIDERS: Internal Medicine; Nurse Practitioner; Admitting Provider Internal Medicine; Emergency Provider Emergency Medicine; PCP Family Medicine; Visit Provider Physician Assistant
DX: K56.7 Ileus, unspecified (principal); R74.8 Abnormal levels of other serum enzymes; K29.70 Gastritis, unspecified, without bleeding; K21.9 Gastro-esophageal reflux disease without esophagitis; D75.1 Secondary polycythemia; G20 Parkinson's disease; R27.0 Ataxia, unspecified; D72.829 Elevated white blood cell count, unspecified; R55 Syncope and collapse; I95.1 Orthostatic hypotension; Z68.24 Body mass index [BMI] 24.0-24.9, adult; Z90.49 Acquired absence of other specified parts of digestive tract; Z91.81 History of falling; Z86.16 Personal history of COVID-19; Z20.822 Contact with and (suspected) exposure to COVID-19; Z79.51 Long term (current) use of inhaled steroids; F17.209 Nicotine dependence, unspecified, with unspecified nicotine-induced disorders; Z79.899 Other long term (current) drug therapy
CPT/HCPCS: 36415; 70450; 74018; 74177; 80053; 80074; 81001; 83690; 83735; 85025; 93005; 93306; 93880; 96361; 96365; 96366; 96374; 96375; 96376; 99285; A9270; C9113; C9803; G0378; J0131; J1170; J2270; J2405; J2543; J2550; J7030; Q9967; U0003; U0005

== ENCOUNTER 2022-08-08 14:00 | Outpatient (CLI) | payer MEDICARE, SELFPAY ==
--- NOTE | ~2022-08-08 | XR_ITS ---
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 RESULT: Lines, tubes, and devices: Right axillary and cholecystectomy clips. Presumed splenic granuloma. Lungs and pleura: Biapical pleural scarring. Calcified pulmonary granulomas. Mild senescent change. Linear bibasilar opacities likely representing atelectasis or scar.. Cardiomediastinal silhouette: Stable. Other: No acute osseous or upper abdominal finding. IMPRESSION: No acute cardiopulmonary process. Reviewed, dictated and finalized at location K. KLINE OPERATOR
== END 2022-08-08 14:01 | disposition home or self-care (01) ==
PROVIDERS: PCP Family Medicine; Visit Provider Family Medicine
DX: J20.9 Acute bronchitis, unspecified (principal)
CPT/HCPCS: 71046